=== PATIENT | male | born 2000 | race Hispanic/Latino ===

== ENCOUNTER 2023-09-09 08:43 | Emergency (ER) | payer BC ==
[2023-09-09] MEDS ORDERED: Bacitracin 1 PK ONE (09:05)
[2023-09-09] MEDS ORDERED: Boostrix 0.5 ML (Tdap) VIAL (>/=7 yrs of age) ONE (09:05)
[2023-09-09] MEDS ORDERED: Lidocaine 1% (PF) 30 ML VIAL ONE (09:05)
== END 2023-09-09 09:25 | disposition home or self-care (01) ==
LOC: NAV ERS 08:43
DX: S81.811A Laceration without foreign body, right lower leg, initial encounter (principal); X78.9XXA Intentional self-harm by unspecified sharp object, initial encounter; Z23 Encounter for immunization
CPT/HCPCS: 12004; 90471; 90715; J2001